=== PATIENT | female | born 1955 | race Caucasian/White ===

== ENCOUNTER 2018-03-21 20:22 | Emergency (ER) | payer OTHER ==
[~2018-03-21] VITALS: Ht 177.8 cm; Wt 100.7 kg
[~2018-03-21 20:22] MED LIST: ADULT LOW DOSE81 MG PO; ALLEGRA ALLERG180 MG PO; ALLEGRA30 MG PO; ASPIRIN EC81 M1 PO; ATIVAN0.5 MG PO; BACTRIM DS TAB1 EACH PO; BLOOD PRESSURE PILL; BYSTOLIC 5 MG5 M1 PO; CEFDINIR300 MG PO; CELEXA 20 MG TA20 M1 PO; CELEXA 20 MG TA20 MG PO; CEPHALEXIN 500500 M1 PO; CIPROFLOXACIN500 M1 PO; CLARITIN10 MG PO; DARVOCET-N 1001 EACH PO; DOXYCYCLINE 10100 M1 PO; ESTRACE1 MG; FAMCYCLOVIR 50500 M1 PO; FIORICET 50-321 EACH PO; FLINTSTONES1 EAC1 PO; FLONASE 0.05%50 MCG INH; HCTZ; HYDROCHLOROTHIA25 M1 PO; K-DUR 20 MEQ T20 MEQ PO; K-DUR10 ME1 PO; KLOR-CON 1010 MEQ PO; LANSOPRAZOLE30 MG PO; LOPRESSOR100 M1 PO; LOPRESSOR50 PO; LORAZEPAM 1 MG T1 M1 PO; MECLIZINE 25 MG25 M1 PO; MECLIZINE HCL12.5 MG PO; MEDROL DOSPAK21 TA1 PO; METOPROLOL SUCC25 M1 PO; MULTIVITAMINS; MULTIVITAMINS1 EAC7 PO; NEXIUM; NEXIUM 40 MG CA40 M1 PO; NORCO 5-325 TA1 EACH PO; OMEPRAZOLE40 MG PO; PRENATAL; PRILOSEC 20 MG20 MG PO; PROAIR HFA8.5 GM IH; PROMETHAZINE/C118 ML PO; SERTRALINE HCL25 M1 PO; SINGULAIR 10 MG10 M1 PO; TESSALON PERLE100 MG; TESSALON PERLE100 MG PO; TOPROL XL100 MG PO; TOPROL XL50 MG PO; TRANSDERM-SCO1 PATC1 TRANSDERM; TUSSIONEX PENNKI1 ML PO; ULTRAM 50MG TAB50 MG PO; VITAMIN D2000 UNIT PO; ZANTAC 150MG T150 MG PO; ZOFRAN ODT4 MG PO; ZOFRAN4 MG PO
[2018-03-21 21:18] LABS: HEMATOCRIT 44.4 % (37.0-47.0); HEMOGLOBIN 15.1 gm/dL (12.0-15.0); MCH 31.4 pg (26.0-34.0); MCV 92.4 fL (80.0-100.0); MPV 8.3 fl. (7.2-11.1); NUCLEATED RBCS 0 /100WBC; PLATELET COUNT* 242 thou/uL (150-400); RDW-CV 13.1 % (10.5-14.5); WBC 15.9 thou/uL (4.0-11.0)
[2018-03-21 21:21] LABS: CALCIUM 9.8 mg/dL (8.5-10.1); CREATININE 0.8 mg/dL (0.6-1.3); POTASSIUM 3.4 mmol/L (3.5-5.1)
[2018-03-21 21:25] LABS: ALBUMIN 4.1 g/dL (3.4-5.0); TOTAL BILIRUBIN 0.6 mg/dL (<0.1-1.0); TOTAL PROTEIN 7.9 g/dL (6.4-8.2)
[2018-03-21 21:52] LABS: ABSOLUTE MONOCYTES 0.2 thou/uL (0.0-1.2); ABSOLUTE NEUTROPHILS 14.8 thou/uL (1.6-8.1)
[2018-03-21 21:53] LABS: PLATELET ESTIMATE ADEQUATE
[2018-03-21 21:58] LABS: URINE BILIRUBIN NEGATIVE (Negative); URINE BLOOD 1+ (Negative); URINE CLARITY CLEAR; URINE COLOR YELLOW; URINE GLUCOSE-RANDOM NEGATIVE (Negative); URINE KETONES NEGATIVE (Negative); URINE LEUKOCYTES-REFLEX NEGATIVE (Negative); URINE NITRITE-REFLEX NEGATIVE (Negative); URINE PROTEIN NEGATIVE (Negative); URINE SPECIFIC GRAVITY 1.025 (1.005-1.030); URINE UROBILINOGEN 0.2 E.U./dl (0.2-1.0)
[2018-03-21 22:17] LABS: BACTERIA-REFLEX None Seen /HPF (None Seen); CASTS None Seen /LPF (None Seen); CRYSTALS None Seen /LPF (None Seen); SQUAMOUS >10 Many /LPF (0-3); URINE RBC 0-2 Rare /HPF (0-2); URINE WBC-REFLEX None Seen /HPF (0-5)
[2018-03-21] MEDS ORDERED: HYDROCODON-ACE1 EAC7 PO (23:45)
[2018-03-21] MEDS ORDERED: PHENERGAN 25 MG25 M1 PO (23:45)
[2018-03-21] MEDS ORDERED: ATROVENT 0.06% NASAL (23:45)
[2018-03-21 23:54] VITALS: BP 115/62
== END 2018-03-21 23:55 | disposition home or self-care (01) ==
LOC: M.ERS 20:22
PROVIDERS: Personal Emergency Response Attendant
DX: R11.2 Nausea with vomiting, unspecified (principal); R51 Headache; I10 Essential (primary) hypertension; Z87.442 Personal history of urinary calculi; Z90.89 Acquired absence of other organs; Z85.79 Personal history of other malignant neoplasms of lymphoid, hematopoietic and related tissues; Z88.5 Allergy status to narcotic agent; Z88.0 Allergy status to penicillin; Z91.041 Radiographic dye allergy status; Z88.1 Allergy status to other antibiotic agents; Z88.2 Allergy status to sulfonamides; Z88.8 Allergy status to other drugs, medicaments and biological substances

== ENCOUNTER 2018-03-25 14:09 | Emergency (ER) | payer OTHER ==
[~2018-03-25] VITALS: Ht 177.8 cm; Wt 99.8 kg
[~2018-03-25 14:09] MED LIST changes: +ATROVENT 0.06% NASAL; +HYDROCODON-ACE1 EAC7 PO; +PHENERGAN 25 MG25 M1 PO
[2018-03-25 14:35] LABS: URINE BILIRUBIN NEGATIVE (Negative); URINE BLOOD NEGATIVE (Negative); URINE CLARITY CLEAR; URINE COLOR YELLOW; URINE GLUCOSE-RANDOM NEGATIVE (Negative); URINE KETONES NEGATIVE (Negative); URINE LEUKOCYTES-REFLEX NEGATIVE (Negative); URINE NITRITE-REFLEX NEGATIVE (Negative); URINE PROTEIN NEGATIVE (Negative); URINE SPECIFIC GRAVITY <= 1.005 (1.005-1.030); URINE UROBILINOGEN 0.2 E.U./dl (0.2-1.0)
[2018-03-25 14:47] LABS: ABSOLUTE BASOPHILS 0.1 thou/uL (0.0-0.2); ABSOLUTE EOSINOPHILS 0.1 thou/uL (0.0-0.7); ABSOLUTE LYMPHOCYTES 2.2 thou/uL (0.8-5.3); ABSOLUTE MONOCYTES 0.6 thou/uL (0.0-1.2); ABSOLUTE NEUTROPHILS 4.1 thou/uL (1.6-8.1); BASOPHILS 0.9 %; EOSINOPHILS 1.9 %; HEMOGLOBIN 15.2 gm/dL (12.0-15.0); LYMPHOCYTES 31.2 %; MCH 31.8 pg (26.0-34.0); MCHC 34.6 g/dL (28.0-37.0); MCV 91.9 fL (80.0-100.0); MONOCYTES 8.4 %; MPV 7.9 fl. (7.2-11.1); NUCLEATED RBCS 0 /100WBC; PLATELET COUNT* 253 thou/uL (150-400); POLYS 57.6 %; RBC 4.78 mil/uL (4.20-5.00); RDW-CV 13.4 % (10.5-14.5)
[2018-03-25 15:04] LABS: ALBUMIN 3.9 g/dL (3.4-5.0); ALKALINE PHOSPHATASE 108 U/L (46-116); ANION GAP 8 mmol/L (7-16); BUN 13 mg/dL (7-18); CHLORIDE 102 mmol/L (98-107); CO2 29 mmol/L (21-32); CREATININE 0.7 mg/dL (0.6-1.3); GLUCOSE 90 mg/dL (70-99); POTASSIUM 3.7 mmol/L (3.5-5.1); SGOT 38 U/L (15-37); SGPT 67 U/L (30-65); SODIUM 139 mmol/L (136-145); TOTAL BILIRUBIN 0.5 mg/dL (<0.1-1.0); TOTAL PROTEIN 7.7 g/dL (6.4-8.2); TROPONIN-I LEVEL <0.06 ng/mL (<0.06)
[2018-03-25 15:18] LABS: CALCIUM 9.9 mg/dL (8.5-10.1)
--- NOTE | 2018-03-25 15:55 | EKG ---
[place] [address] ELECTROCARDIOGRAM REPORT Name: FEDERICA GUERRA Room: [facility]#: [id number] Admission: 03/25/18 Attend Phys: Discharge: Date of : 59 Report #: [id number] THIS REPORT FOR: //name// [facility] ED Test Date: 2018-03-25 Test Time: 14:27:55 Pat Name: FEDERICA GUERRA Department: Room: Gender: F Stereo Operator: RAGINI : 1955 Requested By: Manfred Franco Order Number: [id number] MD: Brett Pinto Measurements Intervals [place] Rate: 49 P: 33 [place]: 152 QRS: 28 QRSD: 111 T: 1 QT: 466 QTc: 421 Interpretive Statements Sinus bradycardia Low voltage, precordial leads Borderline repolarization abnormality Baseline wander in lead(s) II Compared to ECG 10/24/2016 09:24:32 Sinus rhythm no longer present Electronically Signed On 03-25-2018 15:54:58 CDT by Brett Pinto [email or web address] <ELECTRONICALLY SIGNED> By: Brett Pinto MD, [facility] 03/25/18 1554 1427 1427 Brett Pinto MD, [facility] /EPI
[2018-03-25 16:05] VITALS: BP 138/75
== END 2018-03-25 16:07 | disposition home or self-care (01) ==
LOC: M.ERS 14:09
PROVIDERS: Nurse Practitioner Family
DX: I10 Essential (primary) hypertension (principal); R42 Dizziness and giddiness; Z88.5 Allergy status to narcotic agent; Z88.0 Allergy status to penicillin; Z88.1 Allergy status to other antibiotic agents; Z88.8 Allergy status to other drugs, medicaments and biological substances; Z91.041 Radiographic dye allergy status; Z87.442 Personal history of urinary calculi

== ENCOUNTER → 2019-05-05 | Outpatient (CLI) | payer BC | LOC: M.CT 07:48 | DX: J32.0 Chronic maxillary sinusitis (principal); J34.89 Other specified disorders of nose and nasal sinuses ==

== ENCOUNTER 2020-05-03 10:02 | Emergency (ER) | payer BC ==
[~2020-05-03] VITALS: Ht 175.3 cm; Wt 113.4 kg
[2020-05-03 10:21] LABS: ABSOLUTE EOSINOPHILS 0.1 thou/uL (0.0-0.7); ABSOLUTE LYMPHOCYTES 2.3 thou/uL (0.8-5.3); ABSOLUTE MONOCYTES 0.6 thou/uL (0.0-1.2); ABSOLUTE NEUTROPHILS 4.6 thou/uL (1.6-8.1); BASOPHILS 0.2 %; EOSINOPHILS 1.5 %; HEMOGLOBIN 15.1 gm/dL (12.0-15.0); MCH 32.4 pg (26.0-34.0); MCHC 35.1 g/dL (28.0-37.0); MCV 92.3 fL (80.0-100.0); MONOCYTES 7.9 %; NUCLEATED RBCS 0 /100WBC; PLATELET COUNT* 246 thou/uL (150-400); POLYS 60.4 %; RBC 4.65 mil/uL (4.20-5.00); RDW-CV 13.5 % (10.5-14.5); WBC 7.6 thou/uL (4.0-11.0)
[2020-05-03 10:31] LABS: ANION GAP 9 mmol/L (7-16); BUN 15 mg/dL (7-18); CALCIUM 8.9 mg/dL (8.5-10.1); CHLORIDE 104 mmol/L (98-107); CO2 28 mmol/L (21-32); CREATININE 0.9 mg/dL (0.6-1.3); GLUCOSE 101 mg/dL (70-99); SODIUM 141 mmol/L (136-145)
[2020-05-03 10:36] LABS: APTT 26.9 Seconds (25.0-31.3); PROTIME 10.3 Seconds (9.20-11.50)
[2020-05-03 10:44] LABS: ALBUMIN 4.1 g/dL (3.4-5.0); ALKALINE PHOSPHATASE 121 U/L (46-116); CK-MB MASS < 0.5 ng/mL (<0.5-3.6); LIPASE 142 U/L (73-393); MAGNESIUM 1.7 mg/dL (1.8-2.4); NT-PRO BRAIN NAT PEPTIDE 186 pg/mL (<300); SGOT 26 U/L (15-37); SGPT 44 U/L (30-65); TOTAL BILIRUBIN 0.4 mg/dL (<0.1-1.0); TOTAL PROTEIN 7.8 g/dL (6.4-8.2)
[2020-05-03 13:20] VITALS: BP 134/76
--- NOTE | 2020-05-04 13:18 | EKG ---
[place] [address] ELECTROCARDIOGRAM REPORT Name: JESÚSSURYA SILVAHENNA FERMIN Room: [facility]#: [id number] Admission: 05/03/20 Attend Phys: Discharge: 05/03/20 Date of : 59 Date of Service: 05/03/20 1005 Report #: [id number] THIS REPORT FOR: //name// [facility] ED Test Date: 2020-05-03 Test Time: 10:05:37 Pat Name: FEDERICA GUERRA Department: Room: Gender: Vendor Specialist: : 1955 Requested By: Kimani Swift Order Number: [id number] MD: Agusto Maradiaga Measurements Intervals [place] Rate: 96 P: 48 [place]: 158 QRS: 46 QRSD: 112 T: 14 QT: 386 QTc: 488 Interpretive Statements Sinus rhythm Low voltage, precordial leads Nonspecific ST segment depression compared to ECG 03/25/2018 14:27:55 Sinus bradycardia no longer present Electronically Signed On 05-04-2020 13:18:00 CDT by Agusto Maradiaga [email or web address] <ELECTRONICALLY SIGNED> By: Agusto Maradiaga MD, FACC 05/04/20 1318 1005 1005 Agusto Maradiaga MD, FAC /EPI
== END 2020-05-03 13:21 | disposition home or self-care (01) ==
LOC: M.ERS 10:02
PROVIDERS: Family Medicine
DX: R07.89 Other chest pain (principal); I10 Essential (primary) hypertension; Z88.5 Allergy status to narcotic agent; Z91.041 Radiographic dye allergy status; Z88.0 Allergy status to penicillin; Z88.1 Allergy status to other antibiotic agents; Z88.2 Allergy status to sulfonamides; Z88.8 Allergy status to other drugs, medicaments and biological substances; Z98.51 Tubal ligation status; Z90.89 Acquired absence of other organs; Z87.442 Personal history of urinary calculi

== ENCOUNTER 2021-01-15 08:06 | Emergency (ER) | payer OTHER ==
[~2021-01-15] VITALS: Ht 175.3 cm; Wt 113.4 kg
[2021-01-15 08:30] LABS: ABSOLUTE EOSINOPHILS 0.1 thou/uL (0.0-0.7); ABSOLUTE LYMPHOCYTES 2.1 thou/uL (0.8-5.3); ABSOLUTE MONOCYTES 0.6 thou/uL (0.0-1.2); ABSOLUTE NEUTROPHILS 3.9 thou/uL (1.6-8.1); BASOPHILS 0.5 %; EOSINOPHILS 1.4 %; HEMATOCRIT 43.6 % (37.0-47.0); HEMOGLOBIN 14.8 gm/dL (12.0-15.0); MCH 31.4 pg (26.0-34.0); MCHC 33.8 g/dL (28.0-37.0); MCV 92.9 fL (80.0-100.0); MONOCYTES 9.4 %; MPV 7.7 fl. (7.2-11.1); NUCLEATED RBCS 0 /100WBC; PLATELET COUNT* 265 thou/uL (150-400); POLYS 57.7 %; RDW-CV 13.2 % (10.5-14.5); WBC 6.8 thou/uL (4.0-11.0)
[2021-01-15 08:45] LABS: CALCIUM 9.3 mg/dL (8.5-10.1); CREATININE 0.9 mg/dL (0.6-1.3); POTASSIUM 3.8 mmol/L (3.5-5.1)
[2021-01-15 08:47] LABS: APTT 26.5 Seconds (25.0-31.3); PROTIME 10.8 Seconds (9.20-11.50)
[2021-01-15 08:55] LABS: ALBUMIN 4.1 g/dL (3.4-5.0); TOTAL BILIRUBIN 0.6 mg/dL (<0.1-1.0); TOTAL PROTEIN 8.2 g/dL (6.4-8.2)
[2021-01-15] MEDS ORDERED: ZPAK PO (10:11)
[2021-01-15] MEDS ORDERED: ZOFRAN ODT4 MG SUBLING (10:27)
[2021-01-15 10:29] VITALS: BP 146/83
--- NOTE | 2021-01-15 17:05 | EKG ---
[place] [address] ELECTROCARDIOGRAM REPORT Name: FEDERICA GUERRA Room: [facility]#: [id number] Admission: 01/15/21 Attend Phys: Discharge: 01/15/21 Date of : 59 Date of Service: 01/15/21819 Report #: [id number] THIS REPORT FOR: //name// [facility] ED Test Date: 2021-01-15 Test Time: 08:20:24 Pat Name: FEDERICA GUERRA Department: Room: Gender: Acupuncture Physician: [facility] : 1955 Requested By: Kimani Swift Order Number: [id number] MD: Agusto Maradiaga Measurements Intervals [place] Rate: 113 P: 52 [place]: 54 QRS: 44 QRSD: 95 T: -19 QT: 364 QTc: 500 Interpretive Statements Sinus tachycardia Delayed R wave progression borderline T abnormalities Compared to ECG 05/03/2020 10:05:37 T-wave abnormality now present Sinus rhythm no longer present Electronically Signed On 01-15-2021 17:04:49 CDT by Agusto Maradiaga [email or web address] <ELECTRONICALLY SIGNED> By: Agusto Maradiaga MD, FACC 01/15/21 1704 9 9 Agusto Maradiaga MD, [facility] /EPI
== END 2021-01-15 10:30 | disposition home or self-care (01) ==
LOC: M.ERS 08:06
PROVIDERS: Family Medicine
DX: J32.1 Chronic frontal sinusitis (principal); R42 Dizziness and giddiness; I10 Essential (primary) hypertension; Z88.5 Allergy status to narcotic agent; Z91.041 Radiographic dye allergy status; Z88.0 Allergy status to penicillin; Z88.2 Allergy status to sulfonamides; Z88.1 Allergy status to other antibiotic agents; Z88.8 Allergy status to other drugs, medicaments and biological substances; Z98.51 Tubal ligation status; Z90.89 Acquired absence of other organs; Z87.442 Personal history of urinary calculi

== ENCOUNTER 2021-07-01 09:07 | Emergency (ER) | payer OTHER ==
[~2021-07-01] VITALS: Ht 177.8 cm; Wt 113.4 kg
[~2021-07-01 09:07] MED LIST changes: +ZOFRAN ODT4 MG SUBLING; +ZPAK PO
[2021-07-01] MEDS ORDERED: TESSALON PERLE100 M1 PO (10:38)
[2021-07-01] MEDS ORDERED: ZOFRAN ODT4 MG DISSOLVE (10:39)
[2021-07-01 10:51] VITALS: BP 180/78
== END 2021-07-01 10:52 | disposition home or self-care (01) ==
LOC: M.ERS 09:07
DX: B34.9 Viral infection, unspecified (principal); Z20.822 Contact with and (suspected) exposure to COVID-19; I10 Essential (primary) hypertension; Z88.5 Allergy status to narcotic agent; Z88.1 Allergy status to other antibiotic agents; Z88.2 Allergy status to sulfonamides; Z88.8 Allergy status to other drugs, medicaments and biological substances; Z91.041 Radiographic dye allergy status; Z79.899 Other long term (current) drug therapy; Z79.82 Long term (current) use of aspirin; Z90.89 Acquired absence of other organs